=== PATIENT | male | born 1950 | race Caucasian/White ===

== ENCOUNTER 2016-12-08 08:27 | Outpatient (CLI) | payer OTHER ==
--- NOTE | 2016-12-08 09:38 | DIAGNOSTIC IMAGING REPORT ---
PROCEDURE: XR CHEST 2 VIEW INDICATION: WELLNESS EXAM/ROUTINE/TOBACCO DEPENDENCY/HYPERTENSION TECHNIQUE: PA and lateral view. COMPARISON: None. FINDINGS: Lungs are clear. Cardiovascular structures are normal. Bony thorax is unremarkable. IMPRESSION: 1. No acute changes
--- NOTE | 2016-12-08 09:58 | DIAGNOSTIC IMAGING REPORT ---
PROCEDURE: DEXA BONE DENSITY STUDY CLINICAL INDICATION: SCREENING COMPARISON: None. FINDINGS: LUMBAR SPINE: Bone mineral density 1.419, T-score 3.0, normal LEFT HIP: Bone mineral density 1.042, T-score 0.1, normal. LEFT FEMORAL NECK: Bone mineral density 0.744, T-score -1.4, osteopenia. (T score greater or equal to -1.0 to: NORMAL) (T score from -1.1 to -2.4: OSTEOPENIA) (T score ess than or equal to -2.5: OSTEOPOROSIS) IMPRESSION: 1. Normal lumbar spine bone mineral density 2. Left hip osteopenia 3. 10-year fracture risk: Major osteoporotic fracture is 7.3%, hip fracture 2.3%.
--- NOTE | 2016-12-08 10:07 | DIAGNOSTIC IMAGING REPORT ---
PROCEDURE: US ABDOMEN VASCULAR-AAA INDICATION: AORTIC ANEURYSM TECHNIQUE: Ashby scale, color Doppler and spectral ultrasound of the abdominal aorta. COMPARISON: None. FINDINGS: Moderate atherosclerosis. Maximal diameter of the aorta: Proximally and 2.8 cm, mid 2.4 cm and distal 2.3 cm. Right iliac artery measures 1.4 cm and left iliac artery 1.3 cm. IMPRESSION: 1. No evidence of an abdominal aortic aneurysm
== END 2016-12-08 23:00 ==
LOC: XR SRH 08:27
DX: M85.88 Other specified disorders of bone density and structure, other site (principal); F17.200 Nicotine dependence, unspecified, uncomplicated; I10 Essential (primary) hypertension